=== PATIENT | female | born 1950 | race American Indian/Alaskan Native ===

== ENCOUNTER 2017-04-23 08:53 | Emergency (ER) | payer MEDICARE ==
--- NOTE | 2017-04-23 09:20 | Emergency Department Report ---
HPI - General Chief Complaint: Adult Asthma Time Seen by Provider: 04/23/17 09:12 - HPI HPI: 66-year-old -[place] female who presents to the emergency department by EMS from home with complaint of shortness of breath, cough, wheezing is been going on since last night. The patient thinks it is a combination of allergies and asthma. She has an albuterol inhaler and nebulized breathing machine at home that has not helped with her symptoms. EMS gave her Solu-Medrol, breathing treatments and magnesium and she says that has improved her symptoms. She is not currently have a primary care doctor here as she moved to [place] from [place]. No sick contacts at home. She denies any chest pain, lower extremity swelling, fever, nausea, vomiting or diaphoresis. She denies tobacco abuse. 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 - Surgical History Past Surgical History?: Yes Additional Surgical History: TUBAL LIGTATION / BILATERAL KNEE - Social History Smoking Status: Never Smoker Substance Use Type: None - Medications Home Medications: Home Medications Medication Instructions Recorded Confirmed Last Taken Type ALBUTEROL Inhaler [ProAir HFA 2 puff IH QID PRN #1 inhalation 04/23/17 Unknown Rx Inhaler] Fluticasone [Flonase] 1 spray NS QDAY 04/23/17 04/23/17 Unknown History Hydrochlorothiazide [HCTZ] 25 mg PO QDAY 04/23/17 04/23/17 Unknown History Hydrochlorothiazide [HCTZ] 25 mg PO QDAY #30 tablet 04/23/17 Unknown Rx amLODIPine [Norvasc] 10 mg PO DAILY 04/23/17 04/23/17 Unknown History amLODIPine [Norvasc] 10 mg PO DAILY #30 tab 04/23/17 Unknown Rx predniSONE [Deltasone] 20 mg PO QDAY #4 tab 04/23/17 Unknown Rx ED Review of Systems ROS: Stated complaint: TAMMY Other details as noted in HPI Comment: All other systems reviewed and negative Constitutional: denies: chills, fever Eyes: denies: eye pain, eye discharge, vision change ENT: denies: ear pain, throat pain Respiratory: cough, shortness of breath, wheezing Cardiovascular: denies: chest pain, palpitations Gastrointestinal: denies: abdominal pain, nausea, diarrhea Genitourinary: denies: urgency, dysuria, discharge Musculoskeletal: denies: back pain, joint swelling, arthralgia Skin: denies: rash, lesions Neurological: denies: headache, weakness, paresthesias Physical Exam - Physical Exam Vital Signs: Vital Signs 04/23/17 09:01 Temperature 98.2 F Pulse Rate 91 H Respiratory 18 Rate Blood Pressure 124/62 O2 Sat by Pulse 100 Oximetry Physical Exam: GENERAL: The patient is well-developed well-nourished. HEENT: Normocephalic. Atraumatic. Extraocular motions are intact. Patient has moist mucous membranes. Pupils equal reactive to light bilaterally. NECK: Supple. Trachea is midline. CHEST/LUNGS: There is some mild expiratory wheezing throughout the chest. No tachypnea or accessory muscle use. There is no respiratory distress noted. HEART/CARDIOVASCULAR: Regular. There is no tachycardia. There is no gallop rub or murmur. ABDOMEN: Abdomen is soft, nontender. Patient has normal bowel sounds. There is no abdominal distention. SKIN: Skin is warm and dry. NEURO: The patient is awake, alert, and oriented. The patient is cooperative. The patient has no focal neurologic deficits. The patient has normal speech. MUSCULOSKELETAL: There is no tenderness or deformity. There is no limitation range of motion. There is no evidence of acute injury. ED Course Vital Signs 04/23/17 09:01 Temperature 98.2 F Pulse Rate 91 H Respiratory 18 Rate Blood Pressure 124/62 O2 Sat by Pulse 100 Oximetry ED Medical Decision Making - Lab Data Result diagrams: 04/23/17 09:25 04/23/17 09:25 - Medical Decision Making 66 year old female presents the emergency department with a history of asthma and some recent coughing and wheezing and shortness of breath. Patient improved after coming in by EMS and receiving a breathing treatment, Solu- Medrol and magnesium. She still had some expiratory wheezing. Labs were unremarkable. Chest x-ray did not show any pneumonia, pleural effusions or pneumothorax. She was given yet another breathing treatment and upon reevaluation she says she is feeling back to baseline and asking for discharge home. She'll be sent home with a few days of steroids, a refill of her albuterol inhaler and a refill of her blood pressure medications. She will return to the ER with any worsening of her symptoms or any acute distress. - Differential Diagnosis asthma, COPD, pneumonia, CHF Critical Care Time: No Critical care attestation.: If time is entered above; I have spent that time in minutes in the direct care of this critically ill patient, excluding procedure time. ED Disposition Clinical Impression: Asthma exacerbation Disposition: TO HOME OR SELFCARE Is pt being admited?: No Condition: Stable Instructions: Asthma (ED) Additional Instructions: Please follow-up with her primary care physician in the next few days. Return to the emergency department with any worsening of your symptoms or any acute distress. Prescriptions: ALBUTEROL Inhaler [ProAir HFA Inhaler] 2 puff IH QID PRN #1 inhalation PRN Reason: Shortness Of Breath amLODIPine [Norvasc] 10 mg PO DAILY #30 tab Hydrochlorothiazide [HCTZ] 25 mg PO QDAY #30 tablet predniSONE [Deltasone] 20 mg PO QDAY #4 tab Referrals: EUGENE HURT MD [Primary Care Provider] - 3-5 Days MARIANO SHAIKH MD [Staff Physician] - 3-5 Days JOSEMANUEL NARAYANAN MD [Staff Physician] - 3-5 Days WANDY CLARK MD [Staff Physician] - 3-5 Days Time of Disposition: 11:50
[2017-04-23 09:34] LABS: Hemoglobin 13.2 gm/dl (10.1-14.3); Mean Corpuscular HGB Conc 33 % (30-34); Mean Corpuscular Hemoglobin 28 pg (28-32); Mean Corpuscular Volume 85 fl (79-97); Platelet Count 192 K/mm3 (140-440); Red Blood Count 4.71 M/mm3 (3.65-5.03); Red Cell Distribution Width 14.8 % (13.2-15.2); White Blood Count 6.8 K/mm3 (4.5-11.0)
[2017-04-23 10:00] LABS: Anion Gap 15 mmol/L; Blood Urea Nitrogen 8 mg/dL (7-17); Calcium 8.3 mg/dL (8.4-10.2); Carbon Dioxide 28 mmol/L (22-30); Glucose 163 mg/dL (65-100); Sodium 143 mmol/L (137-145)
[2017-04-23 10:01] LABS: Potassium 2.9 mmol/L (3.6-5.0)
[2017-04-23] MEDS ORDERED: K-DUR PO ONE (10:11)
--- NOTE | 2017-04-23 10:12 | XRay Report ---
CHEST 2 VIEWS INDICATION: Cough. COMPARISON: 04/29/2011 report; images not retrievable at this time. FINDINGS: PA and lateral chest radiographs demonstrate slight cardiomegaly/left ventricular prominence. Normal mediastinal and hilar contours. Clear lungs. Multilevel thoracic spondylosis. CONCLUSION: Mild cardiomegaly/left ventricular enlargement, new by description since April 2011. Please correlate. Thank you for the opportunity to participate in this patient's care.
[2017-04-23] MEDS ORDERED: DUONEB 0.5 MG-3 MG/3 ML SOLN IH ONE (10:21)
[2017-04-23 10:25] LABS: Blastocytes % (Manual) 0 %
[2017-04-23 10:26] LABS: Diff Status Complete; RBC Morphology Normal
[2017-04-23 12:35] VITALS: BP 136/66
== END 2017-04-23 12:34 | disposition home or self-care (01) ==
LOC: ED 08:53
DX: J45.901 Unspecified asthma with (acute) exacerbation (principal); I10 Essential (primary) hypertension
CPT/HCPCS: 36415; 71020; 80048; 84484; 85007; 85025; 94640; 99284

== ENCOUNTER 2017-08-19 17:55 | Emergency (ER) | payer MEDICARE ==
[2017-08-19] MEDS ORDERED: PROVENTIL IH ONE (18:21)
[2017-08-19] MEDS ORDERED: ATROVENT IH ONE (18:21)
[2017-08-19] MEDS ORDERED: DECADRON IV ONE (19:45)
[2017-08-19 22:45] LABS: Basophils % (Auto) 0.4 % (0.0-1.8); Eosinophils % (Auto) 1.8 % (0.0-4.3); Hematocrit 41.5 % (30.3-42.9); Hemoglobin 13.7 gm/dl (10.1-14.3); Mean Corpuscular HGB Conc 33 % (30-34); Mean Corpuscular Hemoglobin 28 pg (28-32); Mean Corpuscular Volume 86 fl (79-97); Platelet Count 177 K/mm3 (140-440); Red Blood Count 4.83 M/mm3 (3.65-5.03); Red Cell Distribution Width 13.9 % (13.2-15.2); White Blood Count 7.3 K/mm3 (4.5-11.0)
[2017-08-19 23:05] LABS: Anion Gap 19 mmol/L; BUN/Creatinine Ratio 18; Blood Urea Nitrogen 11 mg/dL (7-17); Calcium 8.6 mg/dL (8.4-10.2); Carbon Dioxide 25 mmol/L (22-30); Chloride 99.4 mmol/L (98-107); Glucose 199 mg/dL (65-100); Potassium 3.7 mmol/L (3.6-5.0); Sodium 140 mmol/L (137-145)
--- NOTE | 2017-08-19 23:42 | Emergency Department Report ---
ED Shortness of Breath HPI - General Chief Complaint: Upper Respiratory Infection Stated Complaint: SOB Time Seen by Provider: 08/19/17 19:34 Source: patient Mode of arrival: Ambulatory Limitations: No Limitations - History of Present Illness MD Complaint: shortness of breath, cough (Patient seen by PCP on friday and started on prednisone and keflex. Has been coughing up yellow sputum.) -: week(s) (2) Severity: moderate Pain Scale: 4 Quality: sharp, stabbing Consistency: intermittent Improves With: oxygen, rest, bronchodilators, upright position Worsens With: exertion, movement, coughing, inspiration Known History Of: asthma, diabetes Associated Symptoms: denies other symptoms, cough, sputum production Treatments Prior to Arrival: bronchodilator - Related Data Home Oxygen Therapy: No Home Medications Medication Instructions Recorded Confirmed Last Taken Fluticasone [Flonase] 1 spray NS QDAY 04/23/17 04/23/17 Unknown Hydrochlorothiazide [HCTZ] 25 mg PO QDAY 04/23/17 04/23/17 Unknown amLODIPine [Norvasc] 10 mg PO DAILY 04/23/17 04/23/17 Unknown Previous Rx's Medication Instructions Recorded Last Taken Type ALBUTEROL Inhaler [ProAir HFA 2 puff IH QID PRN #1 inhalation 04/23/17 Unknown Rx Inhaler] Hydrochlorothiazide [HCTZ] 25 mg PO QDAY #30 tablet 04/23/17 Unknown Rx amLODIPine [Norvasc] 10 mg PO DAILY #30 tab 04/23/17 Unknown Rx predniSONE [Deltasone] 20 mg PO QDAY #4 tab 04/23/17 Unknown Rx predniSONE [Deltasone] 10 mg PO .TAPER #30 tab 08/19/17 Unknown Rx Allergies Allergy/AdvReac Type Severity Reaction Status Date / Time No Known Allergies Allergy Unverified 04/23/17 09:00 ED Review of Systems ROS: Stated complaint: SOB Other details as noted in HPI Constitutional: denies: chills, fever Eyes: denies: eye pain, eye discharge, vision change ENT: denies: ear pain, throat pain Respiratory: cough, SOB with exertion, SOB at rest. denies: shortness of breath , wheezing Cardiovascular: denies: chest pain, palpitations Endocrine: no symptoms reported Gastrointestinal: denies: abdominal pain, nausea, diarrhea Genitourinary: denies: urgency, dysuria, discharge Musculoskeletal: denies: back pain, joint swelling, arthralgia Skin: denies: rash, lesions Neurological: denies: headache, weakness, paresthesias Psychiatric: denies: anxiety, depression Hematological/Lymphatic: denies: easy bleeding, easy bruising 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 - Surgical History Past Surgical History?: Yes Additional Surgical History: TUBAL LIGTATION / BILATERAL KNEE - Social History Smoking Status: Never Smoker - Medications Home Medications: Home Medications Medication Instructions Recorded Confirmed Last Taken Type ALBUTEROL Inhaler [ProAir HFA 2 puff IH QID PRN #1 inhalation 04/23/17 Unknown Rx Inhaler] Fluticasone [Flonase] 1 spray NS QDAY 04/23/17 04/23/17 Unknown History Hydrochlorothiazide [HCTZ] 25 mg PO QDAY 04/23/17 04/23/17 Unknown History Hydrochlorothiazide [HCTZ] 25 mg PO QDAY #30 tablet 04/23/17 Unknown Rx amLODIPine [Norvasc] 10 mg PO DAILY 04/23/17 04/23/17 Unknown History amLODIPine [Norvasc] 10 mg PO DAILY #30 tab 04/23/17 Unknown Rx predniSONE [Deltasone] 20 mg PO QDAY #4 tab 04/23/17 Unknown Rx predniSONE [Deltasone] 10 mg PO .TAPER #30 tab 08/19/17 Unknown Rx ED Physical Exam - General Limitations: No Limitations General appearance: alert, in no apparent distress - Head Head exam: Present: atraumatic, normocephalic - Eye Eye exam: Present: normal appearance - ENT ENT exam: Present: mucous membranes moist - Neck Neck exam: Present: normal inspection - Respiratory Respiratory exam: Present: normal lung sounds bilaterally, wheezes (bilateral lungs.). Absent: respiratory distress - Cardiovascular Cardiovascular Exam: Present: regular rate, normal rhythm. Absent: systolic murmur, diastolic murmur, rubs, gallop - GI/Abdominal GI/Abdominal exam: Present: soft, normal bowel sounds - Extremities Exam Extremities exam: Present: normal inspection - Back Exam Back exam: Present: normal inspection - Neurological Exam Neurological exam: Present: alert, oriented X3 - Psychiatric Psychiatric exam: Present: normal affect, normal mood - Skin Skin exam: Present: warm, dry, intact, normal color. Absent: rash ED Course Vital Signs 08/19/17 08/19/17 08/19/17 17:57 18:31 19:39 Temperature 99.2 F 98 F Pulse Rate 98 H 80 Respiratory 18 20 Rate Blood Pressure 157/88 Blood Pressure 132/70 [Left] O2 Sat by Pulse 95 100 Oximetry - Reevaluation(s) Reevaluation #1: 08/19/17 23:46 Reevaluated patient and she has poor air movement but vital are all normal right now and she states she feels much better after the steroids shot. Clinically she has improved. ED Medical Decision Making - Lab Data Result diagrams: 08/19/17 18:33 08/19/17 18:33 - Radiology Data Radiology results: image reviewed (No acute change from previous CXR.) No acute change from previous CXR. - Medical Decision Making She has Asthma exacerbation and is taking her symbicort. She was not on a very high dose of prednisone likely due to concern for her borderline DM. We have encouraged her to use albuterol up to every 2 hours if she is coughing and to continue her Keflex as CXR does not show PNA and her CBC is normal. I have also talked to her at length to reduce complex carbohydrate intake due to DM for which she realized she was taking a lot of foods not DM friendly. We will do predinisone taper for 12 days and she has an appointment with pulmonology on the . Critical care attestation.: If time is entered above; I have spent that time in minutes in the direct care of this critically ill patient, excluding procedure time. ED Disposition Clinical Impression: Asthma exacerbation Qualifiers: Asthma severity: severe Asthma persistence: persistent Qualified Code(s): J45.51 - Severe persistent asthma with (acute) exacerbation Disposition: -01 TO HOME OR SELFCARE Is pt being admited?: No Does the pt Need Aspirin: No Condition: Stable Instructions: Bronchospasm (ED) Additional Instructions: Change your diet as we discussed to limit complex carbohydrates. Prescriptions: predniSONE [Deltasone] 10 mg PO .TAPER #30 tab Referrals: PRIMARY CARE, [Primary Care Provider] - 3-5 Days Time of Disposition: 23:54
[2017-08-20 00:16] VITALS: BP 132/69
--- NOTE | 2017-08-20 08:20 | XRay Report ---
AP CHEST :08/19/17 17:55:00 CLINICAL: URI. COMPARISON:04/23/17 FINDINGS: Cardiomegaly and prominence of the central pulmonary vessels. The lungs are normally expanded and clear. Degenerative changes in the spine. IMPRESSION: Cardiomegaly and pulmonary venous hypertension. No pulmonary edema. No pneumonia.
== END 2017-08-20 00:16 | disposition home or self-care (01) ==
LOC: ED 17:55
DX: J45.51 Severe persistent asthma with (acute) exacerbation (principal); I10 Essential (primary) hypertension
CPT/HCPCS: 36415; 71010; 80048; 85025; 94640; 96374; 99284; J1100